=== PATIENT | female | born 1990 | race Caucasian/White ===

== ENCOUNTER 2017-04-08 16:47 | Emergency (ER) | payer OTHER ==
[~2017-04-08] VITALS: Ht 154.9 cm; Wt 64.9 kg
[2017-04-08 18:56] VITALS: BP 115/84
== END 2017-04-08 19:38 | disposition home or self-care (01) ==
LOC: ER 16:52
DX: N92.6 Irregular menstruation, unspecified (principal); E11.9 Type 2 diabetes mellitus without complications
CPT/HCPCS: 36415; 84702